=== PATIENT | female | born 1975 | race American Indian/Alaskan Native ===

== ENCOUNTER 2022-06-08 12:17 | Emergency (ER) | payer BC ==
[2022-06-08] MEDS ORDERED: IBUPROFEN 800 MG TAB PO ONE (14:20)
[2022-06-08] MEDS ORDERED: cloNIDine 0.1 MG TAB PO ONE (14:20)
[2022-06-08 14:45] LABS: Hematocrit 38.3 % (30.3-42.9); Hemoglobin 12.4 gm/dl (10.1-14.3); Mean Corpuscular HGB Conc 32 % (30-34); Mean Corpuscular Volume 83 fl (79-97); Platelet Count 385 K/mm3 (140-440); Red Blood Count 4.62 M/mm3 (3.65-5.03)
--- NOTE | 2022-06-08 14:59 | Emergency Department Report ---
ED General Adult HPI - General Chief complaint: High BP Stated complaint: HIGH BLOOD PRESSURE/KNEES GIVING OUT/BALANCE OFF PUI?: No Time Seen by Provider: 06/08/22 13:44 Source: patient, family Mode of arrival: Ambulatory Limitations: No Limitations - History of Present Illness Initial comments: 47 yo comes to ER with inc bp and b knee pain. She has arthritis. She has known htn and is off meds. Before moving here she took norvasc But has no pcp here She states norvasc gave her a rash and made her itch But she took it until she ran out no cp no sob no headache neuro intact ambulatory to FT -: Gradual, week(s) Consistency: intermittent Improves with: none Worsens with: none Associated Symptoms: denies other symptoms. denies: confusion, chest pain, cough, diaphoresis, fever/chills, headaches, loss of appetite, malaise, nausea/vomiting, rash, seizure, shortness of breath, syncope, weakness Treatments Prior to Arrival: none - Related Data Previous Rx's Medication Instructions Recorded Last Taken Type Ibuprofen [Motrin] 800 mg PO Q8HR PRN #30 tablet 06/08/22 Unknown Rx hydroCHLOROthiazide [HCTZ] 25 mg PO QDAY #30 tablet 06/08/22 Unknown Rx predniSONE [Deltasone] 20 mg PO DAILY #5 tablet 06/08/22 Unknown Rx Allergies Allergy/AdvReac Type Severity Reaction Status Date / Time No Known Allergies Allergy Verified 06/08/22 13:19 ED Review of Systems ROS: Stated complaint: HIGH BLOOD PRESSURE/KNEES GIVING OUT/BALANCE OFF Other details as noted in HPI Comment: All other systems reviewed and negative ED Past Medical Hx - Past Medical History Previous Medical History?: Yes Hx Hypertension: Yes Hx Seizures: Yes (off meds for years) Additional medical history: obese. arthritis - Surgical History Past Surgical History?: No - Family History Family history: no significant - Social History Smoking Status: Never Smoker Substance Use Type: Alcohol - Medications Home Medications: Home Medications Medication Instructions Recorded Confirmed Last Taken Type Ibuprofen [Motrin] 800 mg PO Q8HR PRN #30 tablet 06/08/22 Unknown Rx hydroCHLOROthiazide [HCTZ] 25 mg PO QDAY #30 tablet 06/08/22 Unknown Rx predniSONE [Deltasone] 20 mg PO DAILY #5 tablet 06/08/22 Unknown Rx ED Physical Exam - General Limitations: No Limitations General appearance: alert, in no apparent distress - Head Head exam: Present: atraumatic, normocephalic - Eye Eye exam: Present: normal appearance - ENT ENT exam: Present: mucous membranes moist - Neck Neck exam: Present: normal inspection - Respiratory Respiratory exam: Present: normal lung sounds bilaterally. Absent: respiratory distress - Cardiovascular Cardiovascular Exam: Present: regular rate, normal rhythm. Absent: systolic murmur, diastolic murmur, rubs, gallop - GI/Abdominal GI/Abdominal exam: Present: soft, normal bowel sounds - Extremities Exam Extremities exam: Present: normal inspection - Back Exam Back exam: Present: normal inspection - Neurological Exam Neurological exam: Present: alert, oriented X3 - Psychiatric Psychiatric exam: Present: normal affect, normal mood - Skin Skin exam: Present: warm, dry, intact, normal color. Absent: rash ED Course Vital Signs 06/08/22 13:15 Temperature 97.8 F Pulse Rate 82 Respiratory 18 Rate Blood Pressure 168/124 [Right] O2 Sat by Pulse 100 Oximetry ED Medical Decision Making - Lab Data Result diagrams: 06/08/22 14:04 06/08/22 14:04 - Medical Decision Making Labs 06/08/22 06/08/22 14:04 14:04 WBC 11.9 H RBC 4.62 Hgb 12.4 Hct 38.3 MCV 83 MCH 27 L MCHC 32 RDW 14.0 Plt Count 385 Troponin T < 0.010 Albumin/Globulin Ratio 1.0 Vital Signs 06/08/22 13:15 Temperature 97.8 F Pulse Rate 82 Respiratory 18 Rate Blood Pressure 168/124 [Right] O2 Sat by Pulse 100 Oximetry a/c htn of meds medicated with clonidine and hctz in er for bp given motrin for pain labs noted trop neg neuro intact pt has no symptoms associated with her blood pressure she co b knee pain due to her arthritis no fall no trauma ambulatory and neurovasc intact dc home with dc plan of care including diet, meds, activity and follow up. she verbalizes understanding of d/c plan of care. - Differential Diagnosis htn- a/c Critical care attestation.: If time is entered above; I have spent that time in minutes in the direct care of this critically ill patient, excluding procedure time. ED Disposition Clinical Impression: HTN (hypertension), Non-adherence to medical treatment, Arthritis, Obese Disposition: HOME / SELF CARE / HOMELESS Is pt being admited?: No Does the pt Need Aspirin: No Condition: Stable Instructions: Hypertension, Adult, Hypertension (ED) Additional Instructions: meds as ordered today for pain bp med daily take it in the am no fried food no fast food drink a lot water low salt diet exercise daily follow up with pcp referral below Prescriptions: predniSONE [Deltasone] 20 mg PO DAILY #5 tablet hydroCHLOROthiazide [HCTZ] 25 mg PO QDAY #30 tablet Ibuprofen [Motrin] 800 mg PO Q8HR PRN #30 tablet PRN Reason: Pain, Moderate (4-6) Referrals: MARCELA DEL REAL MD [Staff Physician] - 3-5 Days Forms: Work/School Release Form(ED) Time of Disposition: 15:08
[2022-06-08 15:02] LABS: Alanine Aminotransferase 8 units/L (7-56); Blood Urea Nitrogen 9 mg/dL (7-17); Calcium 9.7 mg/dL (8.4-10.2); Hemolysis Index 2
[2022-06-08] MEDS ORDERED: hydroCHLOROthiazide 25 MG TAB PO ONE (15:08)
[2022-06-08 15:27] LABS: BUN/Creatinine Ratio 18
[2022-06-08 15:52] VITALS: BP 168/108
== END 2022-06-08 15:52 | disposition home or self-care (01) ==
LOC: ED 12:17
DX: I10 Essential (primary) hypertension (principal); M19.90 Unspecified osteoarthritis, unspecified site; Z91.19 Patient's noncompliance with other medical treatment and regimen; E66.9 Obesity, unspecified; R56.9 Unspecified convulsions
CPT/HCPCS: 36415; 80053; 84484; 84703; 85027; 99283

== ENCOUNTER 2022-06-14 14:18 | Emergency (ER) | payer BC ==
[2022-06-14 15:15] VITALS: BP 160/90
[2022-06-14 16:57] LABS: Alanine Aminotransferase 10 units/L (7-56); Albumin 4.3 g/dL (3.9-5); BUN/Creatinine Ratio 21; Blood Urea Nitrogen 15 mg/dL (7-17); Calcium 9.5 mg/dL (8.4-10.2); Hemolysis Index 1
[2022-06-14 17:32] LABS: Hematocrit 39.3 % (30.3-42.9); Mean Corpuscular HGB Conc 33 % (30-34); Mean Corpuscular Volume 82 fl (79-97); Platelet Count 398 K/mm3 (140-440); Red Blood Count 4.79 M/mm3 (3.65-5.03)
--- NOTE | 2022-06-14 17:51 | XRay Report ---
CHEST 2 VIEWS INDICATION: syncope. COMPARISON: None. FINDINGS: Support devices: None. Heart: Within normal limits. Lungs/Pleura: No acute air space or interstitial disease. No significant pleural effusion. IMPRESSION: No acute findings. Signer Name: Efraín Gutpa MD Signed: 06/14/2022 5:47 PM Workstation Name: [id number]
--- NOTE | 2022-06-15 09:55 | Electrocardiograph Report ---
[facility] Test Date: 2022-06-14 Test Time: 15:15:47 Pat Name: JEANE ZELAYA Department: Room: Gender: F Attending Psychiatrist: 0000 : 1975 Requested By: ALEXANDER LINDQUIST Order Number: [id number] Reading MD: Jameel Rivas Measurements Intervals [place] Rate: 108 P: 50 CA: 195 QRS: -15 QRSD: 81 T: 25 QT: 347 QTc: 467 Interpretive Statements Sinus tachycardia Left atrial enlargement No previous ECG available for comparison Electronically Signed On 06-15-2022 9:54:49 EDT by Jameel Rivas
== END 2022-06-14 23:45 | disposition left against medical advice (07) ==
LOC: ED 14:18
DX: I10 Essential (primary) hypertension (principal); Z53.21 Procedure and treatment not carried out due to patient leaving prior to being seen by health care provider
CPT/HCPCS: 36415; 71046; 80053; 84484; 84703; 85027; 93005